=== PATIENT | female | born 1995 | race Caucasian/White ===

== ENCOUNTER 2025-07-15 17:35 | Emergency (ER) | payer BC, SELFPAY ==
[2025-07-15 17:44] VITALS: BP 141/93
--- NOTE | 2025-07-15 18:26 | ED.GENMED ---
History of Present Illness
<Virginia Medrano PA-C - Last Filed: 07/15/25 21:21>
General
Chief Complaint: Abdominal Symptoms
Source: patient
Exam Limitations: none
Time Seen by Provider: 07/15/25 18:07
History of Present Illness
History of Present Illness:
30yoF with a history of migraines and anxiety presenting with her father for evaluation of multiple complaints. Patient has been having URI symptoms with cough, congestion, and exertional dyspnea for the past 3 weeks. She called her PCP 2 days ago
who started her on azithromycin. She was also advised to take Mucinex and Sudafed. She started to experience significant nausea and vomiting later that day. She is having difficulty tolerating p.o. intake. She reports decreased urine output and
does not believe that she has urinated today. She is also experiencing diarrhea which started prior to initiation of antibiotics. She has vomited about 5x today and has had 2 episodes of diarrhea. She also reports a developing migraine, chest
discomfort, feeling like her heart is racing, and generalized abdominal discomfort.
Past History
<Virginia Medrano PA-C - Last Filed: 07/15/25 21:21>
Past History
ED Past Medical History: None
ED Past Surgical History: Other (wisdom teeth)
Social History
Tobacco: Non-smoker
Alcohol: None
Drug: None
Personal: Single
Phy Exam
<Virginia Medrano PA-C - Last Filed: 07/15/25 21:21>
General Physical Exam
General Presentation: well appearing and no apparent distress
General Skin: warm and dry
General Habitus: normal
General Mental: alert
ENT Exam
ENT Exam: TM's normal, pharynx normal, neck supple and normocephalic
Cardiovascular Exam
Cardiovascular Exam: regular rate/rhythm
Pulmonary Exam
Pulmonary Exam: lungs clear, no respiratory distress, no rales, no crackles, no rhonchi and no wheezing
Gastrointestinal Exam
Gastrointestinal Exam: soft, non distended and other (+Tenderness in suprapubic and RLQ regions. Abdomen soft, non-distended. No rebound or guarding.)
Neurological Exam
Neurological Exam: alert
Solomon Coma Scale
Eye Opening: Spontaneous
Verbal Response: Oriented
Motor Response: Obeys Commands
GCS Total Score: 15
Skin Exam
Skin Exam: normal color and warm/dry
Psychiatric Exam
Psychiatric Exam: normal mood/affect
<PELON Herron - Last Filed: 07/15/25 23:38>
Kent Coma Scale
GCS Total Score: 15
Course
<Virginia Medrano PA-C - Last Filed: 07/15/25 21:21>
Orders/Labs/Results
Orders:
Orders
07/15/25 18:23
0.9% Sodium Chloride 1000 ml [Nss] 1,000 ml IV BOLUS
Diphenhydramine [Benadryl] 25 mg IV NOW STA
Iohexol [Omnipaque] See Protocol PO NOW STA
Ketorolac [Toradol] 15 mg IV NOW STA
Metoclopramide [Reglan] 10 mg IV NOW STA
07/15/25 18:24
Test Result ONCE
CR Chest - 2 Views Urgent
Comment:
Reason For Exam: SOB
07/15/25 18:25
Electrocardiogram (*1) Urgent
Reason for Study: Chest Pain
EKG- Treatment ONCE
07/15/25 19:59
Complete Blood Count/With Diff Urgent
Comprehensive Metabolic Panel Urgent
HCG, Serum Qualitative Screen Urgent
Lipase Urgent
Troponin I Urgent
07/15/25 20:16
COVID-19 Antigen Urgent
Source: Nasal Swab
Influenza A+B Rapid Molecular Urgent
EDGAR Source: Nasal Swab
Specimen Description:
Abnormal Lab Results
07/15/25
19:59
Absolute Neuts (auto) 7.2 H 10^3/uL
(1.4-6.5)
Carbon Dioxide 19 L mmol/L
(22-30)
07/15/25 19:59
07/15/25 19:59
Vital Signs
Initial and Last Documented VS:
Initial Vital Signs
Temp Pulse Resp BP Pulse Ox
97.8 F 104 16 141/93 100
07/15/25 17:44 07/15/25 17:44 07/15/25 17:44 07/15/25 17:44 07/15/25 17:44
Last Documented Vital Signs
Temp Pulse Resp BP Pulse Ox
98.5 F 65 19 118/79 99
07/15/25 19:48 07/15/25 21:30 07/15/25 21:30 07/15/25 21:00 07/15/25 21:30
<PELON Herron - Last Filed: 07/15/25 23:38>
Orders/Labs/Results
Orders:
Orders
07/15/25 18:23
0.9% Sodium Chloride 1000 ml [Nss] 1,000 ml IV BOLUS
Diphenhydramine [Benadryl] 25 mg IV NOW STA
Iohexol [Omnipaque] See Protocol PO NOW STA
Ketorolac [Toradol] 15 mg IV NOW STA
Metoclopramide [Reglan] 10 mg IV NOW STA
07/15/25 18:24
Test Result ONCE
CR Chest - 2 Views Urgent
Comment:
Reason For Exam: SOB
07/15/25 18:25
Electrocardiogram (*1) Urgent
Reason for Study: Chest Pain
EKG- Treatment ONCE
07/15/25 19:59
Complete Blood Count/With Diff Urgent
Comprehensive Metabolic Panel Urgent
HCG, Serum Qualitative Screen Urgent
Lipase Urgent
Troponin I Urgent
07/15/25 20:16
COVID-19 Antigen Urgent
Source: Nasal Swab
Influenza A+B Rapid Molecular Urgent
EDGAR Source: Nasal Swab
Specimen Description:
Abnormal Lab Results
07/15/25
19:59
Absolute Neuts (auto) 7.2 H 10^3/uL
(1.4-6.5)
Carbon Dioxide 19 L mmol/L
(22-30)
07/15/25 19:59
07/15/25 19:59
Vital Signs
Initial and Last Documented VS:
Initial Vital Signs
Temp Pulse Resp BP Pulse Ox
97.8 F 104 16 141/93 100
07/15/25 17:44 07/15/25 17:44 07/15/25 17:44 07/15/25 17:44 07/15/25 17:44
Last Documented Vital Signs
Temp Pulse Resp BP Pulse Ox
98.5 F 65 19 118/79 99
07/15/25 19:48 07/15/25 21:30 07/15/25 21:30 07/15/25 21:00 07/15/25 21:30
Juanalt;Virginia Medrano PA-C - Last Filed: 07/15/25 21:21>
MDM/Problems Addressed
Differential Diagnosis Includes:
30yoF here with multiple complaints. Has been sick with URI symptoms x 3 weeks. Started on azithromycin 2 days ago. Now with vomiting and diarrhea. Also c/o chest pain, abd pain, BUTLER. HR 104 in triage. Remainder of vitals normal. Patient well
appearing and non-toxic. No signs of peritonitis on abdominal exam. Differential diagnosis includes: viral illness, antibiotic side effect, dehydration, appendicitis, gastroenteritis
Initial ED plan: Check abdominal labs, troponin/EKG, COVID/flu swab, UA, CXR, and CT abdomen with IV/PO contrast. IV Reglan, Benadryl, Toradol, and fluid bolus for symptoms.
<Virginia Medrano PA-C - Last Filed: 07/15/25 21:21>
*Pulse Oximetry
SaO2: 100
Oxygen Mode of Delivery: Room air
Patient hypoxic: no
*EKG
Interpreted by ED Provider?: Yes
EKG Intrepretation Date: 07/15/25
Heart Rate: 84
Rate: normal
Rhythm: sinus
M[place]on[place]: normal axis
Interval: normal interval
QRS Pattern: low voltage
Ischemia: no ischemia
*Critical Care Note
Total Time (30-74mins, 75-104mins- exclusive of procedures): Not Applicable
<Virginia Medrano PA-C - Last Filed: 07/15/25 21:21>
Update Note
Update Note:
Labs reveal a bicarb of 19. Labs otherwise unremarkable including normal white count, electrolytes, renal function, LFTs, and lipase. Viral testing negative. Chest x-ray clear. EKG shows normal sinus rhythm without ischemic changes and troponin
undetectable. CT abdomen initially ordered however on repeat evaluation, patient is feeling significantly improved and does not feel that she needs any abdominal imaging. Abdominal exam repeated and abdomen is soft, nontender. She feels her
abdominal pain is likely muscular from dry heaving and CT cancelled. She is tolerating PO intake and has not had any further vomiting/diarrhea since arriving to the ED. Patient stable for discharge. Prescription for Zofran sent to pharmacy and
supportive care discussed. Advised f/u with PCP and strict ED return precautions reviewed.
ED Attending Note
<Virginia Medrano PA-C - Last Filed: 07/15/25 21:21>
-
Portions of this chart may have been created with voice recognition software.� Occasional wrong word or��sound alike� substitutions may have occurred due to the inherent limitations of voice recognition software.
Discharge Plan
Departure
Patient Disposition: Home (Routine Discharge)
Date of Disposition: 07/15/25
Time of Disposition: 21:18
Patient with high blood pressure during this ER visit?: No
Discharge Problem:
Nausea, vomiting, and diarrhea, Abdominal pain, Acute nonintractable headache
Instructions: Nausea and Vomiting, Adult (DC)
Prescriptions:
New
ondansetron 4 mg tablet,disintegrating
4 mg PO Q6H PRN (Reason: nausea and vomiting) Qty: 20 0RF
No Action
norethindrone-e.estradiol-iron [Minastrin 24 Fe] 1 EACH tablet,chewable
1 ea PO DAILY
cephalexin 500 MG capsule
500 mg PO TID Qty: 30 0RF
Referrals:
Jasmin Self DO [Family Provider, General]
Activity Restrictions/Additional Instructions:
Take Zofran as needed for nausea. Drink plenty of fluids and stay hydrated. Eat a bland diet until symptoms improve (bananas, rice, applesauce, toast).
Please follow-up with your family doctor on Thursday. Return to the ER with any new or worsening symptoms including any worsening abdominal pain or pain in your right lower abdomen.
Interventions
Interventions:
*Risk Screen - Suicide Last Done: 07/15/25 20:00
*General Assessment Last Done: 07/15/25 20:00
*Neglect/Abuse Screening Last Done: 07/15/25 20:00
*Nursing Disposition Last Done: 07/15/25 21:45
XB-Mgpstz-Hakuklimsl Assessment Last Done: 07/15/25 20:27
Discharge Date and Time
Discharge Date/Time: 07/15/25 21:46
Print Language: SPANISH
[2025-07-15 19:46] VITALS: BMI 24.6
[2025-07-15 19:48] VITALS: BP 109/81
[2025-07-15 20:00] VITALS: BP 110/76
[2025-07-15] MEDS: NSS 1000 IV (20:00)
[2025-07-15] MEDS: BENADRYL 25 MG IV (20:01)
[2025-07-15] MEDS: OMNIPAQUE 50 ML PO (20:01)
[2025-07-15] MEDS: TORADOL 15 MG IV (20:01)
[2025-07-15] MEDS: REGLAN 10 MG IV (20:02)
[2025-07-15 20:19] LABS: Hematocrit 40.4 % (37.0-47.0); Hemoglobin 14.4 g/dL (12.0-16.0); Mean Corp Hgb Conc. 35.6 g/dL (33.0-37.0); Mean Corpuscular Volume 81.6 fL (81.0-99.0); Nucleated Red Blood Cells % 0 %; Platelet Count 300 10^3/uL (130-400); Red Cell Dist. Width 13.2 % (11.5-14.5)
[2025-07-15 20:34] LABS: HCG, Serum Qualitative Screen Negative
[2025-07-15 20:40] LABS: ALT (SGPT) 16 U/L (0-35); AST (SGOT) 21 U/L (14-36); Albumin 5.0 g/dl (3.5-5.0); Alkaline Phosphatase 65 U/L (38-126); Blood Urea Nitrogen 13 mg/dl (7-17); Calcium 10.0 mg/dl (8.4-10.2); Carbon Dioxide 19 mmol/L (22-30); Chloride 105 mmol/L (98-107); Estimated Creatinine Clearance 84 ml/min; Glucose 90 mg/dl (70-99); Lipase 66 U/L (23-300); Potassium 4.3 mmol/L (3.5-5.1); Sodium 137 mmol/L (135-145); Total Protein 7.7 g/dl (6.3-8.2); eGFR > 60.00
[2025-07-15 20:48] LABS: Troponin I < 0.012 ng/ml
[2025-07-15 20:51] LABS: COVID-19 Antigen Negative (Negative)
[2025-07-15 21:00] VITALS: BP 118/79
== END 2025-07-15 21:46 | disposition home or self-care (01) ==
LOC: EMR 17:35
PROVIDERS: Physician Assistant; EMERGENCY PHYSICIAN Student in an Organized Health Care Education/Training Program; FAMILY PHYSICIAN Family Medicine
DX: R11.2 Nausea with vomiting, unspecified (principal); R19.7 Diarrhea, unspecified; R51.9 Headache, unspecified; R10.84 Generalized abdominal pain; R07.89 Other chest pain; Z11.52 Encounter for screening for COVID-19
CPT/HCPCS: 96374; 96375; 96361; 99285; 71046; 80053; 83690; 84484; 84703; 85025; 87502; 87811; 93005